=== PATIENT | male | born 1980 | race Caucasian/White ===

== ENCOUNTER 2017-02-04 19:48 | Emergency (ER) | payer BC ==
[~2017-02-04] VITALS: Ht 182.9 cm; Wt 113.4 kg
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
--- NOTE | 2017-02-04 20:02 | NUR ---
PAC LYLY AT BEDSIDE FOR EVAL.
[2017-02-04] MEDS ORDERED: ONDANSETRON 4 MG TAB.RAPDIS ONE (20:09)
[2017-02-04] MEDS ORDERED: ACETAMINOPHEN 325 MG TABLET ONE (20:09)
--- NOTE | 2017-02-04 20:12 | NUR ---
PT TO CT VIA [facility]
--- NOTE | 2017-02-04 20:20 | NUR ---
PT RETURNED FROM CT.
[2017-02-04] MEDS ORDERED: ONDANSETRON 4 MG TAB.RAPDIS SL ONE (20:30)
[2017-02-04] MEDS ORDERED: ACETAMINOPHEN 325 MG TABLET PO ONE (20:30)
--- NOTE | 2017-02-04 21:05 | NUR ---
CALLED JENNI, CT RESULTS ARE CURRENTLY BEING READ, INFORMED PAC LYLY.
--- NOTE | 2017-02-04 21:57 | NUR ---
Patient discharged to home in stable condition. Written and verbal after care instructions given. Patient verbalizes understanding of instruction. ambulatory with a steady gait
[2017-02-04 21:59] VITALS: BP 118/78
== END 2017-02-04 22:00 | disposition home or self-care (01) ==
LOC: ER 19:51
DX: S09.90XA Unspecified injury of head, initial encounter (principal); S13.4XXA Sprain of ligaments of cervical spine, initial encounter; E06.3 Autoimmune thyroiditis; V43.52XA Car driver injured in collision with other type car in traffic accident, initial encounter; Y93.89 Activity, other specified; Y92.89 Other specified places as the place of occurrence of the external cause; Y99.9 Unspecified external cause status
CPT/HCPCS: 36415; 70450-TC; 72125-TC; 80305; A4606; G0480; Q0162; Z7610